=== PATIENT | male | born 1955 | race Caucasian/White ===

== ENCOUNTER 2018-01-27 13:11 | Day surgery (SDC) | payer MEDICARE, SELFPAY ==
[~2018-01-27 13:11] MED LIST: ADAL40PEN; FLUO10 PO; FURO20 PO; MORP15ER PO; MORP30ER PO; OXYC5; SPIR25 PO; SPIR50 PO
[2018-01-27 14:23] LABS: Automated BF WBC Count 0.204 K/mm3 (0-999); Body Fluid WBC Count 204 /mm3 (0-999)
[2018-01-27 14:39] LABS: Albumin, Body Fluid 0.8 g/dL; Protein, Body Fluid 2.1 g/dL
[2018-01-27 14:46] LABS: RBC Count, Body Fluid 48 /mm3 (0-0)
[2018-01-27 14:47] LABS: Appearance, Body Fluid Clear (Clear); Color, Body Fluid Yellow (None-Yellow)
[2018-01-27 14:50] LABS: Total Cell Count, Body Fluid 100
== END 2018-01-27 22:36 | disposition home or self-care (01) ==
LOC: US 13:11
PROVIDERS: Student in an Organized Health Care Education/Training Program
PROC: 0W9G3ZZ Drainage of Peritoneal Cavity, Percutaneous Approach (ICD-10-PCS; principal; 2018-01-27)
DX: R18.8 Other ascites (principal); K74.60 Unspecified cirrhosis of liver
CPT/HCPCS: 49083; 82042; 84157; 89051